=== PATIENT | female | born 1950 | race Caucasian/White ===

== ENCOUNTER → 2017-11-26 | Outpatient (CLI) | payer MEDICARE ==
[~2017-11-26] MED LIST: ACET325T14 PO; ALBU18HF INH; ALPR0.5T6 PO; DAPT500V6 IV; DILT240C55 PO; DILT240C80 PO; ENOX150S4 SQ; FURO20TA3 PO; GUAI600T31 PO; HYDR-3307 PO; LOSA100T6 PO; LOVA40TA2 PO; MONT10TA9 PO; OXYC-302 PO; POLY17PO5 PO; PRED10TA PO; SENN1TAB7 PO; SERT100T5 PO; WARF5TAB PO; ZOLP10TA5 PO
== END | disposition home or self-care (01) ==
LOC: WOUND 13:41
PROVIDERS: ATTEND Family Medicine
DX: T81.89XA Other complications of procedures, not elsewhere classified, initial encounter (principal); I10 Essential (primary) hypertension; J44.1 Chronic obstructive pulmonary disease with (acute) exacerbation; E78.5 Hyperlipidemia, unspecified; F32.9 Major depressive disorder, single episode, unspecified; E66.01 Morbid (severe) obesity due to excess calories; Z87.891 Personal history of nicotine dependence; Z86.718 Personal history of other venous thrombosis and embolism; Z90.710 Acquired absence of both cervix and uterus; Z72.89 Other problems related to lifestyle; Y65.8 Other specified misadventures during surgical and medical care; Y92.89 Other specified places as the place of occurrence of the external cause
CPT/HCPCS: 11043; G0463; WOU0463

== ENCOUNTER 2017-12-17 10:21 | Inpatient (IN) | payer MEDICARE ==
[~2017-12-17] VITALS: Ht 167.6 cm; Wt 89.9 kg
[2017-12-17 14:52] VITALS: BP 118/64
[2017-12-17 15:56] LABS: BASOPHILS # (AUTO) 0.05 x10^3/uL (0-0.1); BASOPHILS % (AUTO) 1 % (0-1); EOSINOPHILS % (AUTO) 0 % (1-7); LYMPHOCYTES # (AUTO) 1.78 x10^3/uL (1-3.4); LYMPHOCYTES % (AUTO) 23 % (22-44); MD NO; MEAN CORPUSCULAR HEMOGLOBIN 29.5 pg (27.0-34.8); MEAN CORPUSCULAR HGB CONC 32.6 g/dL (32.4-35.8); MEAN CORPUSCULAR VOLUME 90.3 fL (80-100); MEAN PLATELET VOLUME 7.4 fL (7.4-10.4); MONOCYTES # (AUTO) 0.56 x10^3/uL (0.2-0.8); MONOCYTES % (AUTO) 7 % (2-9); NEUTROPHILS % (AUTO) 68 % (42-75); PLATELET COUNT 493 x10^3/uL (130-400); RED BLOOD COUNT 3.56 x10^6/uL (3.82-5.3); RED CELL DISTRIBUTION WIDTH 14.7 % (9.6-15.2)
[2017-12-17] MEDS ORDERED: ACETAMINOPHEN 325 MG TABLET PO PRN (16:00)
[2017-12-17 16:02] LABS: ANION GAP 7 mmol/L (5-15); CHLORIDE 100 mmol/L (98-107); CREATININE 0.46 mg/dL (0.55-1.02)
[2017-12-17] MEDS ORDERED: MAGNESIUM HYDROXIDE 8%, 30ML UDC PO PRN (16:30)
[2017-12-17] MEDS ORDERED: DOCUSATE 100 MG CAPSULE PO PRN (16:30)
[2017-12-17] MEDS ORDERED: ZOLPIDEM 5MG TABLET PO PRN (16:30)
[2017-12-17] MEDS ORDERED: ONDANSETRON 2MG/ML, 2ML IV PRN (16:30)
[2017-12-17] MEDS ORDERED: ALUMINUM/MAG/SIMETHICONE 30 ML UDC PO PRN (16:30)
[2017-12-17] MEDS: DAPTOMYCIN 500 MG in SODIUM CHLORIDE 0.9% 100 ML IV SCH (17:07)
[2017-12-17] MEDS: OXYcodone IR 5MG TABLET PO PRN (17:07)
[2017-12-17] MEDS: NS + 20MEQ KCL 1,000 ML IV SCH (17:07)
[2017-12-17 17:23] LABS: INTERNATIONAL NORMALIZED RATIO 1.38 (0.93-1.1); PROTHROMBIN TIME 14.3 Seconds (9.6-11.5)
[2017-12-17 19:31] VITALS: BP 105/58
[2017-12-17] MEDS: OxyconTIN ER 10 MG TAB.ER PO SCH (20:54)
[2017-12-18 01:16] VITALS: BP 108/55
[2017-12-18] MEDS: NS + 20MEQ KCL 1,000 ML IV SCH (04:10)
[2017-12-18 04:34] LABS: BASOPHILS # (AUTO) 0.02 x10^3/uL (0-0.1); BASOPHILS % (AUTO) 0 % (0-1); EOSINOPHILS # (AUTO) 0.01 x10^3/uL (0-0.4); EOSINOPHILS % (AUTO) 0 % (1-7); LYMPHOCYTES # (AUTO) 1.51 x10^3/uL (1-3.4); LYMPHOCYTES % (AUTO) 20 % (22-44); MD NO; MEAN CORPUSCULAR HEMOGLOBIN 29.7 pg (27.0-34.8); MEAN CORPUSCULAR HGB CONC 32.6 g/dL (32.4-35.8); MEAN CORPUSCULAR VOLUME 90.9 fL (80-100); MEAN PLATELET VOLUME 7.4 fL (7.4-10.4); MONOCYTES % (AUTO) 8 % (2-9); NEUTROPHILS # (AUTO) 5.51 x10^3/uL (1.8-6.8); NEUTROPHILS % (AUTO) 72 % (42-75); PLATELET COUNT 499 x10^3/uL (130-400); RED BLOOD COUNT 3.56 x10^6/uL (3.82-5.3); RED CELL DISTRIBUTION WIDTH 13.9 % (9.6-15.2)
[2017-12-18 04:40] LABS: INTERNATIONAL NORMALIZED RATIO 1.3 (0.93-1.1); PROTHROMBIN TIME 13.5 Seconds (9.6-11.5)
[2017-12-18 04:45] LABS: ALANINE AMINOTRANSFERASE 27 U/L (12-78); ALBUMIN 2.7 g/dL (3.4-5.0); ANION GAP 3 mmol/L (5-15); CALCIUM 9.1 mg/dL (8.5-10.1); CHLORIDE 104 mmol/L (98-107)
[2017-12-18 04:48] LABS: ALKALINE PHOSPHATASE 57 U/L (45-117); BILIRUBIN,TOTAL 0.5 mg/dL (0.2-1.0); CREATINE KINASE, TOTAL 67 U/L (26-192); CREATININE 0.48 mg/dL (0.55-1.02); TOTAL PROTEIN 6.6 g/dL (6.4-8.2)
[2017-12-18 07:36] VITALS: BP 131/76
[2017-12-18 08:20] VITALS: BP 129/68
[2017-12-18] MEDS: OxyconTIN ER 10 MG TAB.ER PO SCH ×2 (08:21→21:11)
[2017-12-18] MEDS ORDERED: DILTIAZEM 240 MG CAP.ER.24H PO SCH (09:00)
[2017-12-18] MEDS ORDERED: LOSARTAN 50MG TABLET PO SCH (09:00)
[2017-12-18] MEDS ORDERED: FENTANYL PF 100 MCG/2ML ONE ×2 (09:54→10:38)
[2017-12-18] MEDS ORDERED: MIDAZOLAM 1 MG/ML, 2ML ONE (09:54)
[2017-12-18] MEDS ORDERED: PROPOFOL 10 MG/ML, 20ML ONE (09:56)
[2017-12-18] MEDS ORDERED: OXYcodone 5 MG/5 ML ORAL.SOL UDC ONE (10:38)
[2017-12-18] MEDS ORDERED: ACETAMINOPHEN 650 MG/20.3 ML UDC ONE (10:38)
[2017-12-18] MEDS: FENTANYL PF 100 MCG/2ML IV PRN ×2 (10:45→10:55)
[2017-12-18] MEDS ORDERED: OXYcodone 5 MG/5 ML ORAL.SOL UDC PO PRN (11:00)
[2017-12-18] MEDS ORDERED: hydrALAzine 20 MG/ML, 1ML IV PRN (11:00)
[2017-12-18] MEDS ORDERED: ACETAMINOPHEN 325 MG TABLET PO PRN (11:00)
[2017-12-18] MEDS ORDERED: MEPERIDINE/PF 25MG/0.5ML IVPush PRN (11:00)
[2017-12-18] MEDS ORDERED: PROMETHAZINE 25 MG/ML, 1ML IV PRN (11:00)
[2017-12-18] MEDS ORDERED: LABETALOL 5MG/ML, 20ML IV PRN (11:00)
[2017-12-18] MEDS ORDERED: morphine SULFATE 10 MG/ML, 1ML IV PRN (11:00)
[2017-12-18] MEDS ORDERED: DILTIAZEM 240 MG CAP.ER.24H ONE (12:55)
[2017-12-18] MEDS ORDERED: LOSARTAN 50MG TABLET ONE (12:57)
[2017-12-18 13:06] VITALS: BP 121/59
[2017-12-18] MEDS: LOSARTAN 50MG TABLET PO SCH (13:07)
[2017-12-18] MEDS: LACTOBACILLUS CHEW TABLET PO SCH (13:07)
[2017-12-18] MEDS: DILTIAZEM 240 MG CAP.ER.24H PO SCH (13:08)
[2017-12-18] MEDS: SERTRALINE 100MG TABLET PO SCH (13:08)
[2017-12-18] MEDS: DAPTOMYCIN 500 MG in SODIUM CHLORIDE 0.9% 100 ML IV SCH (17:01)
[2017-12-18 18:59] VITALS: BP 112/63
[2017-12-18 23:50] VITALS: BP 120/66
[2017-12-19 03:45] VITALS: BP 140/76
[2017-12-19 04:55] LABS: BASOPHILS # (AUTO) 0.09 x10^3/uL (0-0.1); BASOPHILS % (AUTO) 1 % (0-1); EOSINOPHILS # (AUTO) 0.03 x10^3/uL (0-0.4); EOSINOPHILS % (AUTO) 0 % (1-7); LYMPHOCYTES % (AUTO) 25 % (22-44); MD NO; MEAN CORPUSCULAR HEMOGLOBIN 29.6 pg (27.0-34.8); MEAN CORPUSCULAR HGB CONC 32.7 g/dL (32.4-35.8); MEAN CORPUSCULAR VOLUME 90.5 fL (80-100); MEAN PLATELET VOLUME 7.6 fL (7.4-10.4); MONOCYTES % (AUTO) 7 % (2-9); NEUTROPHILS # (AUTO) 5.73 x10^3/uL (1.8-6.8); NEUTROPHILS % (AUTO) 67 % (42-75); PLATELET COUNT 485 x10^3/uL (130-400); RED BLOOD COUNT 3.69 x10^6/uL (3.82-5.3); RED CELL DISTRIBUTION WIDTH 14.6 % (9.6-15.2)
[2017-12-19 05:13] LABS: CALCIUM 9.4 mg/dL (8.5-10.1); CHLORIDE 102 mmol/L (98-107); INTERNATIONAL NORMALIZED RATIO 1.22 (0.93-1.1); PROTHROMBIN TIME 12.6 Seconds (9.6-11.5)
[2017-12-19 05:20] LABS: ALANINE AMINOTRANSFERASE 26 U/L (12-78); ALKALINE PHOSPHATASE 62 U/L (45-117); ANION GAP 4 mmol/L (5-15); BILIRUBIN,TOTAL 0.6 mg/dL (0.2-1.0); CREATININE 0.48 mg/dL (0.55-1.02); TOTAL PROTEIN 6.9 g/dL (6.4-8.2)
[2017-12-19 07:50] VITALS: BP 141/76
[2017-12-19] MEDS: ENOXAPARIN 100 MG/ML SQ SCH ×2 (08:00→20:00)
[2017-12-19] MEDS ORDERED: DILTIAZEM 240 MG CAP.ER.24H PO SCH (09:00)
[2017-12-19] MEDS ORDERED: LOSARTAN 50MG TABLET PO SCH (09:00)
[2017-12-19] MEDS: LOSARTAN 50MG TABLET PO SCH (09:31)
[2017-12-19] MEDS: DILTIAZEM 240 MG CAP.ER.24H PO SCH (09:31)
[2017-12-19] MEDS: LACTOBACILLUS CHEW TABLET PO SCH (09:31)
[2017-12-19] MEDS: OxyconTIN ER 10 MG TAB.ER PO SCH ×2 (09:32→20:42)
[2017-12-19] MEDS: SERTRALINE 100MG TABLET PO SCH (09:36)
[2017-12-19 13:27] VITALS: BP 115/54
[2017-12-19] MEDS: DAPTOMYCIN 500 MG in SODIUM CHLORIDE 0.9% 100 ML IV SCH (17:12)
[2017-12-19 19:46] VITALS: BP 116/58
[2017-12-20 03:29] VITALS: BP 111/63
[2017-12-20 05:39] LABS: BASOPHILS # (AUTO) 0.12 x10^3/uL (0-0.1); BASOPHILS % (AUTO) 2 % (0-1); EOSINOPHILS # (AUTO) 0.05 x10^3/uL (0-0.4); EOSINOPHILS % (AUTO) 1 % (1-7); LYMPHOCYTES # (AUTO) 2.04 x10^3/uL (1-3.4); LYMPHOCYTES % (AUTO) 27 % (22-44); MD NO; MEAN CORPUSCULAR HEMOGLOBIN 29.7 pg (27.0-34.8); MEAN CORPUSCULAR HGB CONC 33.1 g/dL (32.4-35.8); MEAN CORPUSCULAR VOLUME 89.8 fL (80-100); MEAN PLATELET VOLUME 7.8 fL (7.4-10.4); MONOCYTES # (AUTO) 0.68 x10^3/uL (0.2-0.8); MONOCYTES % (AUTO) 9 % (2-9); NEUTROPHILS # (AUTO) 4.63 x10^3/uL (1.8-6.8); NEUTROPHILS % (AUTO) 62 % (42-75); PLATELET COUNT 442 x10^3/uL (130-400); RED BLOOD COUNT 3.61 x10^6/uL (3.82-5.3); RED CELL DISTRIBUTION WIDTH 14.1 % (9.6-15.2)
[2017-12-20 05:41] LABS: INTERNATIONAL NORMALIZED RATIO 1.1 (0.93-1.1); PROTHROMBIN TIME 11.4 Seconds (9.6-11.5)
[2017-12-20 05:44] LABS: CHLORIDE 102 mmol/L (98-107)
[2017-12-20 06:04] LABS: ALANINE AMINOTRANSFERASE 29 U/L (12-78); ALBUMIN 2.8 g/dL (3.4-5.0); ALKALINE PHOSPHATASE 59 U/L (45-117); ANION GAP 5 mmol/L (5-15); BILIRUBIN,TOTAL 0.4 mg/dL (0.2-1.0); CALCIUM 8.8 mg/dL (8.5-10.1); CREATINE KINASE, TOTAL 374 U/L (26-192); CREATININE 0.46 mg/dL (0.55-1.02); HCT (SEDRATE) 33.4 % (34.6-47.8); TOTAL PROTEIN 6.5 g/dL (6.4-8.2)
[2017-12-20] MEDS ORDERED: OMNIPAQUE 350 MG/ML, 100ML BOTTLE ONE (06:15)
[2017-12-20 07:35] VITALS: BP 118/67
[2017-12-20] MEDS: OxyconTIN ER 10 MG TAB.ER PO SCH ×2 (08:23→22:02)
[2017-12-20] MEDS: LACTOBACILLUS CHEW TABLET PO SCH (08:23)
[2017-12-20] MEDS: SERTRALINE 100MG TABLET PO SCH (08:23)
[2017-12-20] MEDS: LOSARTAN 50MG TABLET PO SCH (08:24)
[2017-12-20] MEDS: DILTIAZEM 240 MG CAP.ER.24H PO SCH (08:24)
[2017-12-20] MEDS: ENOXAPARIN 100 MG/ML SQ SCH ×2 (08:24→22:02)
[2017-12-20] MEDS: PIPERACILLIN/TAZO/PMX 4.5GM 100 ML IV SCH ×2 (13:53→22:04)
[2017-12-20 14:00] VITALS: BP 129/67
[2017-12-20] MEDS: DAPTOMYCIN 500 MG in SODIUM CHLORIDE 0.9% 100 ML IV SCH (17:26)
[2017-12-20 19:19] VITALS: BP 115/56
[2017-12-21 04:25] VITALS: BP 126/73
[2017-12-21] MEDS: PIPERACILLIN/TAZO/PMX 4.5GM 100 ML IV SCH ×3 (05:09→20:47)
[2017-12-21 05:22] LABS: BASOPHILS # (AUTO) 0.04 x10^3/uL (0-0.1); BASOPHILS % (AUTO) 1 % (0-1); EOSINOPHILS # (AUTO) 0.12 x10^3/uL (0-0.4); EOSINOPHILS % (AUTO) 2 % (1-7); LYMPHOCYTES # (AUTO) 2.26 x10^3/uL (1-3.4); LYMPHOCYTES % (AUTO) 30 % (22-44); MD NO; MEAN CORPUSCULAR HGB CONC 32.5 g/dL (32.4-35.8); MEAN CORPUSCULAR VOLUME 89.3 fL (80-100); MEAN PLATELET VOLUME 7.1 fL (7.4-10.4); MONOCYTES % (AUTO) 8 % (2-9); NEUTROPHILS % (AUTO) 60 % (42-75); PLATELET COUNT 414 x10^3/uL (130-400); RED BLOOD COUNT 3.52 x10^6/uL (3.82-5.3); RED CELL DISTRIBUTION WIDTH 14.5 % (9.6-15.2)
[2017-12-21 05:28] LABS: INTERNATIONAL NORMALIZED RATIO 1.11 (0.93-1.1); PROTHROMBIN TIME 11.5 Seconds (9.6-11.5)
[2017-12-21 05:38] LABS: ANION GAP 4 mmol/L (5-15); CALCIUM 9.1 mg/dL (8.5-10.1); CHLORIDE 104 mmol/L (98-107)
[2017-12-21 05:40] LABS: CREATININE 0.63 mg/dL (0.55-1.02)
[2017-12-21] MEDS ORDERED: DEXAMETHASONE 4 MG/ML, 1ML ONE (07:04)
[2017-12-21 07:45] VITALS: BP 128/69
[2017-12-21] MEDS: ENOXAPARIN 100 MG/ML SQ SCH ×2 (08:00→20:47)
[2017-12-21] MEDS: DILTIAZEM 240 MG CAP.ER.24H PO SCH (08:05)
[2017-12-21] MEDS: SERTRALINE 100MG TABLET PO SCH (08:05)
[2017-12-21] MEDS: LOSARTAN 50MG TABLET PO SCH (08:06)
[2017-12-21] MEDS: OxyconTIN ER 10 MG TAB.ER PO SCH ×2 (08:06→20:47)
[2017-12-21] MEDS: LACTOBACILLUS CHEW TABLET PO SCH (08:06)
[2017-12-21 14:00] VITALS: BP 128/59
[2017-12-21] MEDS: DAPTOMYCIN 500 MG in SODIUM CHLORIDE 0.9% 100 ML IV SCH (17:20)
[2017-12-21 20:18] VITALS: BP 105/61
[2017-12-22 02:19] VITALS: BP 110/59
[2017-12-22] MEDS: PIPERACILLIN/TAZO/PMX 4.5GM 100 ML IV SCH ×3 (05:21→22:07)
[2017-12-22] MEDS ORDERED: CATHFLO-ALTEPLASE 2 MG/2 ML CATHFLUSH ONE (05:30)
[2017-12-22 06:13] LABS: INTERNATIONAL NORMALIZED RATIO 1.01 (0.93-1.1); PROTHROMBIN TIME 10.5 Seconds (9.6-11.5)
[2017-12-22] MEDS ORDERED: MIDAZOLAM 1 MG/ML, 2ML ONE (06:33)
[2017-12-22] MEDS ORDERED: FENTANYL PF 100 MCG/2ML ONE ×2 (06:33→07:58)
[2017-12-22] MEDS ORDERED: PROMETHAZINE 25 MG SUPP PR PRN (07:30)
[2017-12-22] MEDS ORDERED: MEPERIDINE/PF 25MG/0.5ML IVPush PRN (07:30)
[2017-12-22] MEDS ORDERED: ONDANSETRON 0.8 MG/ML ORAL SOL PO PRN (07:30)
[2017-12-22] MEDS ORDERED: hydrALAzine 20 MG/ML, 1ML IV PRN (07:30)
[2017-12-22] MEDS ORDERED: PROMETHAZINE 12.5 MG SUPP PR PRN (07:30)
[2017-12-22] MEDS ORDERED: OXYcodone 5 MG/5 ML ORAL.SOL UDC PO PRN (07:30)
[2017-12-22] MEDS ORDERED: PROMETHAZINE 25 MG/ML, 1ML IV PRN (07:30)
[2017-12-22] MEDS ORDERED: LABETALOL 5MG/ML, 20ML IV PRN (07:30)
[2017-12-22] MEDS ORDERED: LORazepam 2 MG/ML, 1ML IVPush PRN (07:30)
[2017-12-22] MEDS ORDERED: ALBUTEROL SULFATE 2.5 MG/3 ML NPPB PRN (07:30)
[2017-12-22] MEDS ORDERED: HYDROmorphone 1 MG/ML, 1ML IV PRN (07:30)
[2017-12-22] MEDS ORDERED: ACETAMINOPHEN 325 MG TABLET PO PRN (07:30)
[2017-12-22] MEDS ORDERED: ACETAMINOPHEN 650 MG/20.3 ML UDC ONE (07:58)
[2017-12-22] MEDS ORDERED: ACETAMINOPHEN 325 MG TABLET ONE ×2 (07:58→08:05)
[2017-12-22] MEDS ORDERED: OXYcodone 5 MG/5 ML ORAL.SOL UDC ONE (07:58)
[2017-12-22] MEDS: FENTANYL PF 100 MCG/2ML IV PRN ×2 (08:00→08:20)
[2017-12-22 08:55] VITALS: BP 104/48
[2017-12-22] MEDS: LOSARTAN 50MG TABLET PO SCH (09:00)
[2017-12-22] MEDS: LACTOBACILLUS CHEW TABLET PO SCH (11:46)
[2017-12-22] MEDS: SERTRALINE 100MG TABLET PO SCH (11:46)
[2017-12-22] MEDS: OxyconTIN ER 10 MG TAB.ER PO SCH ×2 (11:47→22:08)
[2017-12-22] MEDS: ENOXAPARIN 80 MG/0.8 ML SQ SCH ×2 (11:47→20:33)
[2017-12-22 13:15] VITALS: BP 117/44
[2017-12-22] MEDS: DILTIAZEM 240 MG CAP.ER.24H PO SCH (13:57)
[2017-12-22] MEDS: OXYcodone IR 5MG TABLET PO PRN ×5 (13:58→22:07)
[2017-12-22] MEDS: DAPTOMYCIN 500 MG in SODIUM CHLORIDE 0.9% 100 ML IV SCH (18:19)
[2017-12-22 19:28] VITALS: BP 113/61
[2017-12-22 23:45] VITALS: BP 107/64
[2017-12-23] MEDS: PIPERACILLIN/TAZO/PMX 4.5GM 100 ML IV SCH (05:02)
[2017-12-23 07:32] VITALS: BP 114/59
[2017-12-23 08:16] LABS: INTERNATIONAL NORMALIZED RATIO 1.03 (0.93-1.1); PROTHROMBIN TIME 10.7 Seconds (9.6-11.5)
[2017-12-23] MEDS: LOSARTAN 50MG TABLET PO SCH (09:09)
[2017-12-23] MEDS: OXYcodone IR 5MG TABLET PO PRN (09:09)
[2017-12-23] MEDS: LACTOBACILLUS CHEW TABLET PO SCH (09:09)
[2017-12-23] MEDS: DILTIAZEM 240 MG CAP.ER.24H PO SCH (09:09)
[2017-12-23] MEDS: OxyconTIN ER 10 MG TAB.ER PO SCH ×2 (09:09→20:59)
[2017-12-23] MEDS: SERTRALINE 100MG TABLET PO SCH (09:09)
[2017-12-23] MEDS: ENOXAPARIN 80 MG/0.8 ML SQ SCH ×2 (09:10→20:00)
[2017-12-23] MEDS: CEFTRIAXONE PMX 2GM/50ML 50 ML IV SCH (13:21)
[2017-12-23 13:23] VITALS: BP 113/59
[2017-12-23] MEDS: WARFARIN 10 MG TABLET PO-COUM SCH (17:55)
[2017-12-23] MEDS: DAPTOMYCIN 500 MG in SODIUM CHLORIDE 0.9% 100 ML IV SCH (17:56)
[2017-12-23 18:38] VITALS: BP 103/52
[2017-12-23] MEDS ORDERED: LIDODERM 5% PATCH TD PRN (21:30)
[2017-12-24 01:30] VITALS: BP 108/59
[2017-12-24 06:08] LABS: INTERNATIONAL NORMALIZED RATIO 1.03 (0.93-1.1); PROTHROMBIN TIME 10.7 Seconds (9.6-11.5)
[2017-12-24] MEDS: LACTOBACILLUS CHEW TABLET PO SCH (09:13)
[2017-12-24] MEDS: LOSARTAN 50MG TABLET PO SCH (09:14)
[2017-12-24] MEDS: ENOXAPARIN 100 MG/ML SQ SCH ×2 (09:14→21:28)
[2017-12-24] MEDS: OxyconTIN ER 10 MG TAB.ER PO SCH ×2 (09:14→21:28)
[2017-12-24] MEDS: SERTRALINE 100MG TABLET PO SCH (09:14)
[2017-12-24] MEDS: DILTIAZEM 240 MG CAP.ER.24H PO SCH (09:14)
[2017-12-24 09:17] VITALS: BP 104/61
[2017-12-24] MEDS: MORPHINE SULFATE 4 MG/ML, 1ML IV PRN (11:52)
[2017-12-24] MEDS: CEFTRIAXONE PMX 2GM/50ML 50 ML IV SCH (13:23)
[2017-12-24 14:59] VITALS: BP 106/47
[2017-12-24] MEDS: WARFARIN 10 MG TABLET PO-COUM SCH (17:24)
[2017-12-24] MEDS: DAPTOMYCIN 500 MG in SODIUM CHLORIDE 0.9% 100 ML IV SCH (17:24)
[2017-12-24 19:55] VITALS: BP 110/62
[2017-12-25 02:57] VITALS: BP 102/56
[2017-12-25 06:26] VITALS: BP 109/56
[2017-12-25 06:44] LABS: INTERNATIONAL NORMALIZED RATIO 1.05 (0.93-1.1); PROTHROMBIN TIME 10.9 Seconds (9.6-11.5)
[2017-12-25] MEDS: OxyconTIN ER 10 MG TAB.ER PO SCH ×2 (09:00→20:42)
[2017-12-25] MEDS: SERTRALINE 100MG TABLET PO SCH (09:00)
[2017-12-25] MEDS: LACTOBACILLUS CHEW TABLET PO SCH (09:00)
[2017-12-25] MEDS: LOSARTAN 50MG TABLET PO SCH (09:01)
[2017-12-25] MEDS: ENOXAPARIN 100 MG/ML SQ SCH ×2 (09:02→20:42)
[2017-12-25] MEDS: DILTIAZEM 240 MG CAP.ER.24H PO SCH (09:03)
[2017-12-25 12:57] VITALS: BP 111/50
[2017-12-25] MEDS: OXYcodone IR 5MG TABLET PO PRN (13:48)
[2017-12-25] MEDS: CEFTRIAXONE PMX 2GM/50ML 50 ML IV SCH (13:48)
[2017-12-25] MEDS ORDERED: SODIUM CHLORIDE 0.9% 1,000 ML IV SCH (17:30)
[2017-12-25] MEDS: DAPTOMYCIN 500 MG in SODIUM CHLORIDE 0.9% 100 ML IV SCH (17:49)
[2017-12-25] MEDS: WARFARIN 10 MG TABLET PO-COUM SCH (17:50)
[2017-12-25 18:38] VITALS: BP 114/58
[2017-12-26 01:31] VITALS: BP 125/65
[2017-12-26 06:42] LABS: INTERNATIONAL NORMALIZED RATIO 1.06 (0.93-1.1)
[2017-12-26 06:44] LABS: CREATININE 0.52 mg/dL (0.55-1.02)
[2017-12-26 08:08] VITALS: BP 123/69
[2017-12-26] MEDS: SERTRALINE 100MG TABLET PO SCH (09:16)
[2017-12-26] MEDS: OxyconTIN ER 10 MG TAB.ER PO SCH ×2 (09:16→21:42)
[2017-12-26] MEDS: ENOXAPARIN 100 MG/ML SQ SCH ×2 (09:16→21:42)
[2017-12-26] MEDS: DILTIAZEM 240 MG CAP.ER.24H PO SCH (09:17)
[2017-12-26] MEDS: LOSARTAN 50MG TABLET PO SCH (09:17)
[2017-12-26] MEDS: LACTOBACILLUS CHEW TABLET PO SCH (09:17)
[2017-12-26] MEDS: CEFTRIAXONE PMX 2GM/50ML 50 ML IV SCH (13:30)
[2017-12-26 13:34] VITALS: BP 112/62
[2017-12-26] MEDS: WARFARIN 10 MG TABLET PO-COUM SCH (17:22)
[2017-12-26] MEDS: DAPTOMYCIN 500 MG in SODIUM CHLORIDE 0.9% 100 ML IV SCH (17:22)
[2017-12-26 19:03] VITALS: BP 109/61
[2017-12-26] MEDS: MORPHINE SULFATE 4 MG/ML, 1ML IV PRN (21:57)
[2017-12-27 03:34] VITALS: BP 115/63
[2017-12-27] MEDS: OXYcodone IR 5MG TABLET PO PRN ×2 (06:03→14:45)
[2017-12-27 06:15] LABS: BASOPHILS # (AUTO) 0.05 x10^3/uL (0-0.1); BASOPHILS % (AUTO) 1 % (0-1); EOSINOPHILS # (AUTO) 0.27 x10^3/uL (0-0.4); EOSINOPHILS % (AUTO) 4 % (1-7); LYMPHOCYTES # (AUTO) 2.34 x10^3/uL (1-3.4); LYMPHOCYTES % (AUTO) 33 % (22-44); MD NO; MEAN CORPUSCULAR HEMOGLOBIN 28.9 pg (27.0-34.8); MEAN CORPUSCULAR HGB CONC 32.7 g/dL (32.4-35.8); MEAN CORPUSCULAR VOLUME 88.5 fL (80-100); MEAN PLATELET VOLUME 7.8 fL (7.4-10.4); MONOCYTES # (AUTO) 0.63 x10^3/uL (0.2-0.8); MONOCYTES % (AUTO) 9 % (2-9); NEUTROPHILS # (AUTO) 3.75 x10^3/uL (1.8-6.8); NEUTROPHILS % (AUTO) 53 % (42-75); PLATELET COUNT 352 x10^3/uL (130-400); RED BLOOD COUNT 3.62 x10^6/uL (3.82-5.3); RED CELL DISTRIBUTION WIDTH 14.8 % (9.6-15.2)
[2017-12-27 06:28] LABS: ALANINE AMINOTRANSFERASE 41 U/L (12-78); ANION GAP 4 mmol/L (5-15); C-REACTIVE PROTEIN, QUANT 0.49 mg/dL (0.02-0.49); CALCIUM 8.8 mg/dL (8.5-10.1); CHLORIDE 102 mmol/L (98-107); CREATININE 0.51 mg/dL (0.55-1.02)
[2017-12-27 06:30] LABS: ALKALINE PHOSPHATASE 71 U/L (45-117); BILIRUBIN,TOTAL 0.2 mg/dL (0.2-1.0); CREATINE KINASE, TOTAL 79 U/L (26-192); TOTAL PROTEIN 6.9 g/dL (6.4-8.2)
[2017-12-27 06:59] LABS: INTERNATIONAL NORMALIZED RATIO 1.11 (0.93-1.1); PROTHROMBIN TIME 11.5 Seconds (9.6-11.5)
[2017-12-27 07:49] VITALS: BP 108/57
[2017-12-27] MEDS: OxyconTIN ER 10 MG TAB.ER PO SCH (09:11)
[2017-12-27] MEDS: LACTOBACILLUS CHEW TABLET PO SCH (09:11)
[2017-12-27] MEDS: SERTRALINE 100MG TABLET PO SCH (09:11)
[2017-12-27] MEDS: ENOXAPARIN 100 MG/ML SQ SCH (09:11)
[2017-12-27] MEDS: DILTIAZEM 240 MG CAP.ER.24H PO SCH (09:11)
[2017-12-27] MEDS: LOSARTAN 50MG TABLET PO SCH (09:11)
[2017-12-27 13:00] VITALS: BP 111/61
[2017-12-27] MEDS: CEFTRIAXONE PMX 2GM/50ML 50 ML IV SCH (13:14)
[2017-12-27] MEDS: DAPTOMYCIN 500 MG in SODIUM CHLORIDE 0.9% 100 ML IV SCH (15:23)
[2017-12-27] MEDS ORDERED: CEFT2FRO2 IV (15:52)
[2017-12-27] MEDS ORDERED: LACT1CAP24 PO (15:53)
[2017-12-27] MEDS ORDERED: OXYC10TA47 PO (15:53)
[2017-12-27] MEDS ORDERED: DOCU-131 PO (15:54)
[2017-12-27] MEDS ORDERED: MAGN400O7 PO (15:54)
[2017-12-27] MEDS ORDERED: OXYC5CAP2 PO (15:55)
[2017-12-27] MEDS ORDERED: MORP1SYR2 IV (15:55)
[2017-12-27] MEDS ORDERED: ONDA2VIA3 IV (15:57)
[2017-12-27] MEDS ORDERED: LIDO700A42 TP (15:58)
[2017-12-27] MEDS ORDERED: ENOX100S5 SQ (15:59)
== END 2017-12-27 16:48 | DRG 856 ==
LOC: 4NOR 14:39
PROVIDERS: ADMIT Internal Medicine; ATTEND Internal Medicine
PROC: 0QBJ0ZZ Excision of Right Fibula, Open Approach (ICD-10-PCS; 2017-12-18)
PROC: 0YP90JZ Removal of Synthetic Substitute from Right Lower Extremity, Open Approach (ICD-10-PCS; principal; 2017-12-22 07:00)
DX: T81.4XXA Infection following a procedure, initial encounter (principal); J96.00 Acute respiratory failure, unspecified whether with hypoxia or hypercapnia; J18.1 Lobar pneumonia, unspecified organism; D68.59 Other primary thrombophilia; T81.30XA Disruption of wound, unspecified, initial encounter; D62 Acute posthemorrhagic anemia; F11.20 Opioid dependence, uncomplicated; F13.20 Sedative, hypnotic or anxiolytic dependence, uncomplicated; J44.0 Chronic obstructive pulmonary disease with (acute) lower respiratory infection; J98.11 Atelectasis; L03.115 Cellulitis of right lower limb; S82.891A Other fracture of right lower leg, initial encounter for closed fracture; D63.8 Anemia in other chronic diseases classified elsewhere; E66.9 Obesity, unspecified; E78.5 Hyperlipidemia, unspecified; F32.9 Major depressive disorder, single episode, unspecified; F41.9 Anxiety disorder, unspecified; G89.29 Other chronic pain; I10 Essential (primary) hypertension; M19.90 Unspecified osteoarthritis, unspecified site; Z79.01 Long term (current) use of anticoagulants; Z79.899 Other long term (current) drug therapy; Z82.49 Family history of ischemic heart disease and other diseases of the circulatory system; Z87.891 Personal history of nicotine dependence; Z86.711 Personal history of pulmonary embolism; Z90.710 Acquired absence of both cervix and uterus; Z91.81 History of falling; Z96.652 Presence of left artificial knee joint; Z98.1 Arthrodesis status; B95.62 Methicillin resistant Staphylococcus aureus infection as the cause of diseases classified elsewhere; Y83.8 Other surgical procedures as the cause of abnormal reaction of the patient, or of later complication, without mention of misadventure at the time of the procedure; Y92.89 Other specified places as the place of occurrence of the external cause
CPT/HCPCS: 36415; 71045; 71275; 80048; 80053; 82550; 82565; 82962; 85025; 85610; 85651; 85730; 86140; 87070; 87075; 87077; 87176; 87186; 87205; J0696; J0878; J1100; J1650; J2250; J2543; J2704; J2997; J3010; J3480; Q9967; J7030

== ENCOUNTER 2019-07-19 13:30 | Inpatient (IN) | payer MEDICARE ==
[~2019-07-19] VITALS: Ht 165.1 cm; Wt 104.1 kg
[~2019-07-19 13:30] MED LIST changes: +CEFT2FRO2 IV; +DOCU-131 PO; +ENOX100S5 SQ; -HYDR-3307 PO; +HYDR-36 PO; +LACT1CAP24 PO; +LIDO700A42 TP; +LOSA100T14 PO; -LOSA100T6 PO; +MAGN400O7 PO; +MORP1SYR2 IV; +ONDA2VIA3 IV; +OXYC10TA47 PO; +OXYC5CAP2 PO; +SENN-177 PO; -SENN1TAB7 PO; +SERT100T32 PO; -SERT100T5 PO
--- NOTE | 2019-07-19 13:44 | NUR ---
PT BIB [facility] FOR C/O HAVING HELP FROM YESTERDAY FROM TOILET TO BED AND PT HEARD A POP IN HER R ARM AND HAD PAIN. OBVIOUS DEFORMITY TO R ARM. HX COPD PER EMS NOTED TO BE IN THE LOW 80'S ON HER HOME O2. BASELNE 02 IS 3L NC. CURRENTLY ON 6L NC. PT RESTING ON GURNEY. NADN. VSS. EKG COMPLETED. ERP DR. SIDDIQI AT BEDSIDE.
[2019-07-19] MEDS ORDERED: ONDANSETRON 2MG/ML, 2ML IVPush ONE (14:00)
[2019-07-19] MEDS ORDERED: ALBUTEROL SULFATE 2.5 MG/3 ML NPPB ONE (14:00)
[2019-07-19] MEDS ORDERED: ALBUTEROL/IPRATROPIUM 2.5MG/0.5MG, 3 ML NPPB ONE (14:00)
[2019-07-19] MEDS ORDERED: SODIUM CHLORIDE FLUSH 10ML SYR IVF ONE (14:00)
[2019-07-19] MEDS ORDERED: ONDANSETRON 2MG/ML, 2ML ONE (14:07)
[2019-07-19] MEDS ORDERED: MORPHINE SULFATE 4 MG/ML, 1ML ONE ×2 (14:07→19:15)
[2019-07-19] MEDS ORDERED: ALBUTEROL/IPRATROPIUM 2.5MG/0.5MG, 3 ML ONE ×2 (14:08→20:54)
[2019-07-19 14:20] LABS: MEAN CORPUSCULAR HEMOGLOBIN 28.5 pg (27.0-34.8); MEAN CORPUSCULAR HGB CONC 31.9 g/dL (32.4-35.8); MEAN CORPUSCULAR VOLUME 89.4 fL (80-100); MEAN PLATELET VOLUME 7.9 fL (7.4-10.4); PLATELET COUNT 246 x10^3/uL (130-400); RED BLOOD COUNT 2.63 x10^6/uL (3.82-5.3); RED CELL DISTRIBUTION WIDTH 14.4 % (9.6-15.2)
[2019-07-19 14:29] LABS: ALANINE AMINOTRANSFERASE 17 U/L (12-78); ALBUMIN 2.9 g/dL (3.4-5.0); ANION GAP 4 mmol/L (5-15); CALCIUM 9.2 mg/dL (8.5-10.1); CHLORIDE 93 mmol/L (98-107); CREATININE 0.75 mg/dL (0.55-1.02)
[2019-07-19] MEDS ORDERED: MORPHINE SULFATE 4 MG/ML, 1ML IVPush PRN (14:30)
[2019-07-19 14:32] LABS: ALKALINE PHOSPHATASE 64 U/L (45-117); BILIRUBIN,TOTAL 0.7 mg/dL (0.2-1.0); TOTAL PROTEIN 6.7 g/dL (6.4-8.2)
[2019-07-19] MEDS ORDERED: CEFTRIAXONE PMX 1GM/50ML 50 ML IV ONE (15:30)
[2019-07-19] MEDS ORDERED: SODIUM CHLORIDE 0.9%, 500ML IVBOLUS ONE (15:30)
[2019-07-19] MEDS ORDERED: AZITHROMYCIN 500 MG in SODIUM CHLORIDE 0.9% 250 ML IV ONE (15:30)
[2019-07-19 15:39] LABS: BASOPHILS # (AUTO) 0.02 x10^3/uL (0-0.1); BASOPHILS % (AUTO) 0 % (0-1); EOSINOPHILS # (AUTO) 0.01 x10^3/uL (0-0.4); EOSINOPHILS % (AUTO) 0 % (1-7); LYMPHOCYTES # (AUTO) 1.42 x10^3/uL (1-3.4); LYMPHOCYTES % (AUTO) 8 % (22-44); MD SCAN; MONOCYTES # (AUTO) 0.88 x10^3/uL (0.2-0.8); MONOCYTES % (AUTO) 5 % (2-9); NEUTROPHILS # (AUTO) 15.19 x10^3/uL (1.8-6.8); NEUTROPHILS % (AUTO) 87 % (42-75)
--- NOTE | 2019-07-19 15:46 | NUR ---
PT RESTING ON GURNEY. NADN. DOMINGUEZ.
--- NOTE | 2019-07-19 15:55 | NUR ---
CHERYL RN. RECEIVED PHONE CALL FROM ASAEL IN LAB. STATED "UNABLE TO PROCESS COAGULATION TESTING/STUDIES DUE TO INTERFERRING SUBSTANCES, BLOOD NEEDS TO BE RE-DRAWN AND POSSIBLY SENT TO [facility]." DISCUSSED WITH DR. WALL, AWARE. PRIMARY RN NOTIFIED, VERBALIZED UNDERSTANDING.
[2019-07-19] MEDS ORDERED: CEFTRIAXONE PMX 1GM/50ML 50 ML ONE (16:02)
[2019-07-19] MEDS ORDERED: NEOSPORIN OINT. PKT 1 PACKET ONE (16:07)
--- NOTE | 2019-07-19 16:26 | NUR ---
PT RESTING ON GURNEY. NADN. DOMINGUEZ.
--- NOTE | 2019-07-19 17:28 | NUR ---
PT RESTING ON GURNEY. NADN. DOMINGUEZ.
[2019-07-19] MEDS ORDERED: ONDANSETRON 2MG/ML, 2ML IVPush PRN (17:30)
[2019-07-19] MEDS ORDERED: hydrALAzine 20 MG/ML, 1ML IVPush PRN (17:30)
[2019-07-19] MEDS ORDERED: ONDANSETRON ODT 4 MG PO PRN (17:30)
[2019-07-19] MEDS ORDERED: ACETAMINOPHEN 325 MG TABLET PO PRN ×2 (17:30→18:00)
[2019-07-19] MEDS ORDERED: morphine SULFATE 10 MG/ML, 1ML IVPush PRN (17:30)
[2019-07-19] MEDS ORDERED: KETOROLAC 30 MG/1 ML IV PRN (17:30)
[2019-07-19] MEDS ORDERED: DOCUSATE 100 MG CAPSULE PO PRN (18:00)
[2019-07-19] MEDS ORDERED: NS + 20MEQ KCL 1,000 ML IV ONE (18:59)
[2019-07-19] MEDS ORDERED: ENOXAPARIN 40 MG/0.4 ML SQ SCH (19:00)
[2019-07-19] MEDS: NS + 20MEQ KCL 1,000 ML IV SCH (19:13)
--- NOTE | 2019-07-19 19:23 | NUR ---
PT RESTING ON GURNEY WITH C/O PAIN IN HER RIGHT WRIST. PT MEDICATED FOR PAIN PER [facility] AND IV POTASSIUM IN NS STARTED.
--- NOTE | 2019-07-19 19:30 | NUR ---
pt ton phone [phone]
--- NOTE | 2019-07-19 19:59 | NUR ---
REPORT TO KATERYNA RN
[2019-07-19 20:30] VITALS: BP 117/73
[2019-07-19 20:51] VITALS: BP 117/73
[2019-07-19] MEDS ORDERED: LOVASTATIN 40 MG TABLET PO SCH (21:00)
[2019-07-19] MEDS ORDERED: WARFARIN 5 MG TABLET PO-COUM SCH (21:00)
[2019-07-19] MEDS: methylPREDNISolone SOD SUCC 125 MG/2 ML IV SCH (21:12)
[2019-07-19] MEDS: OXYcodone IR 5MG TABLET PO PRN (21:12)
[2019-07-19] MEDS: ATORVASTATIN 10 MG TABLET PO SCH (21:12)
[2019-07-19] MEDS ORDERED: PHYTONADIONE 5 MG TABLET PO ONE (23:00)
[2019-07-20] VITALS (7 sets, daily range): BP systolic 95–115; BP diastolic 62–71
[2019-07-20] MEDS: methylPREDNISolone SOD SUCC 125 MG/2 ML IV SCH ×3 (04:45→20:37)
[2019-07-20] MEDS: NS + 20MEQ KCL 1,000 ML IV SCH ×2 (04:46→22:45)
[2019-07-20 05:01] LABS: ANION GAP 5 mmol/L (5-15); CALCIUM 8.7 mg/dL (8.5-10.1); CHLORIDE 96 mmol/L (98-107); CREATININE 0.82 mg/dL (0.55-1.02)
[2019-07-20 05:12] LABS: MEAN CORPUSCULAR HEMOGLOBIN 28.5 pg (27.0-34.8); MEAN CORPUSCULAR HGB CONC 31.9 g/dL (32.4-35.8); MEAN CORPUSCULAR VOLUME 89.4 fL (80-100); MEAN PLATELET VOLUME 8.2 fL (7.4-10.4); PLATELET COUNT 205 x10^3/uL (130-400); RED BLOOD COUNT 2.11 x10^6/uL (3.82-5.3); RED CELL DISTRIBUTION WIDTH 14.3 % (9.6-15.2)
[2019-07-20 05:40] LABS: INTERNATIONAL NORMALIZED RATIO > 12.00 (0.93-1.1); PROTHROMBIN TIME 125.1 Seconds (9.6-11.5)
[2019-07-20 05:42] LABS: BASOPHILS # (AUTO) 0.01 x10^3/uL (0-0.1); BASOPHILS % (AUTO) 0 % (0-1); EOSINOPHILS % (AUTO) 0 % (1-7); LYMPHOCYTES % (AUTO) 5 % (22-44); MD SCAN; MONOCYTES # (AUTO) 0.25 x10^3/uL (0.2-0.8); MONOCYTES % (AUTO) 2 % (2-9); NEUTROPHILS # (AUTO) 10.39 x10^3/uL (1.8-6.8); NEUTROPHILS % (AUTO) 92 % (42-75)
[2019-07-20] MEDS ORDERED: PHYTONADIONE 5 MG TABLET PO ONE (06:00)
[2019-07-20] MEDS: ALBUTEROL SULFATE 2.5 MG/3 ML NPPB SCH ×4 (07:00→18:40)
[2019-07-20] MEDS ORDERED: HOLD COUMADIN MC PRN (08:00)
[2019-07-20] MEDS: SERTRALINE 100MG TABLET PO SCH (08:57)
[2019-07-20] MEDS: DILTIAZEM 240 MG CAP.ER.24H PO SCH (09:00)
[2019-07-20] MEDS: CEFTRIAXONE PMX 1GM/50ML 50 ML IV SCH (12:00)
[2019-07-20] MEDS: AZITHROMYCIN 500 MG in SODIUM CHLORIDE 0.9% 250 ML IV SCH (12:00)
[2019-07-20] MEDS: OXYcodone IR 5MG TABLET PO PRN ×2 (12:03→22:45)
[2019-07-20 15:58] LABS: MICROSCOPIC INDICATED
[2019-07-20 15:59] LABS: CULTURE INDICATED? YES
[2019-07-20] MEDS: ATORVASTATIN 10 MG TABLET PO SCH (20:37)
[2019-07-21 01:14] VITALS: BP 104/68
[2019-07-21] MEDS: methylPREDNISolone SOD SUCC 125 MG/2 ML IV SCH ×3 (04:10→20:13)
[2019-07-21] MEDS: ALBUTEROL SULFATE 2.5 MG/3 ML NPPB SCH ×2 (07:00→10:23)
[2019-07-21] MEDS: NS + 20MEQ KCL 1,000 ML IV SCH ×2 (07:30→23:07)
[2019-07-21 07:54] LABS: INTERNATIONAL NORMALIZED RATIO 1.21 (0.93-1.1)
[2019-07-21 07:55] LABS: PROTHROMBIN TIME 12.6 Seconds (9.6-11.5)
[2019-07-21] MEDS: OXYcodone IR 5MG TABLET PO PRN ×3 (08:20→20:13)
[2019-07-21] MEDS: SERTRALINE 100MG TABLET PO SCH (08:20)
[2019-07-21] MEDS: DILTIAZEM 240 MG CAP.ER.24H PO SCH (08:20)
[2019-07-21 08:21] VITALS: BP 105/65
[2019-07-21] MEDS: CEFTRIAXONE PMX 1GM/50ML 50 ML IV SCH (12:07)
[2019-07-21 13:16] LABS: ALBUMIN 2.6 g/dL (3.4-5.0); ANION GAP 5 mmol/L (5-15); CHLORIDE 100 mmol/L (98-107); CREATININE 0.72 mg/dL (0.55-1.02)
[2019-07-21] MEDS: AZITHROMYCIN 500 MG in SODIUM CHLORIDE 0.9% 250 ML IV SCH (13:17)
[2019-07-21 13:23] LABS: MEAN CORPUSCULAR HEMOGLOBIN 28.7 pg (27.0-34.8); MEAN CORPUSCULAR HGB CONC 31.9 g/dL (32.4-35.8); MEAN PLATELET VOLUME 8.6 fL (7.4-10.4); PLATELET COUNT 348 x10^3/uL (130-400); RED BLOOD COUNT 2.44 x10^6/uL (3.82-5.3); RED CELL DISTRIBUTION WIDTH 14.3 % (9.6-15.2)
[2019-07-21 13:29] LABS: BASOPHILS # (AUTO) 0.01 x10^3/uL (0-0.1); BASOPHILS % (AUTO) 0 % (0-1); EOSINOPHILS % (AUTO) 0 % (1-7); LYMPHOCYTES # (AUTO) 0.45 x10^3/uL (1-3.4); LYMPHOCYTES % (AUTO) 3 % (22-44); MD SCAN; MONOCYTES # (AUTO) 0.34 x10^3/uL (0.2-0.8); MONOCYTES % (AUTO) 3 % (2-9); NEUTROPHILS # (AUTO) 12.36 x10^3/uL (1.8-6.8); NEUTROPHILS % (AUTO) 94 % (42-75)
[2019-07-21 14:05] VITALS: BP 102/56
[2019-07-21] MEDS ORDERED: CHOLECALCIFEROL 400 UNITS/ML ORAL SOL PO SCH (16:30)
[2019-07-21] MEDS ORDERED: POTASSIUM PHOSPHATE 44 MEQ in SODIUM CHLORIDE 0.9% 500 ML IV ONE (16:30)
[2019-07-21] MEDS: ASCORBIC ACID 500 MG TABLET PO SCH (17:37)
[2019-07-21] MEDS ORDERED: WARFARIN 5 MG TABLET PO-COUM ONE (18:00)
[2019-07-21 19:21] VITALS: BP 122/78
[2019-07-21] MEDS: ATORVASTATIN 10 MG TABLET PO SCH (20:13)
[2019-07-22 00:24] VITALS: BP 113/70
[2019-07-22] MEDS: methylPREDNISolone SOD SUCC 125 MG/2 ML IV SCH ×3 (04:35→23:09)
[2019-07-22] MEDS: OXYcodone IR 5MG TABLET PO PRN ×3 (04:58→16:07)
[2019-07-22 07:03] VITALS: BP 124/78
[2019-07-22] MEDS: DILTIAZEM 240 MG CAP.ER.24H PO SCH (08:06)
[2019-07-22] MEDS: SERTRALINE 100MG TABLET PO SCH (08:06)
[2019-07-22] MEDS: ASCORBIC ACID 500 MG TABLET PO SCH ×2 (08:07→16:07)
[2019-07-22] MEDS: MULTIVITS,STRESS FORMULA 1 TABLET PO SCH (08:07)
[2019-07-22 09:20] LABS: INTERNATIONAL NORMALIZED RATIO 1.17 (0.93-1.1); PROTHROMBIN TIME 12.2 Seconds (9.6-11.5)
[2019-07-22 09:23] LABS: ANION GAP 7 mmol/L (5-15); CALCIUM 9.3 mg/dL (8.5-10.1); CHLORIDE 104 mmol/L (98-107); CREATININE 0.87 mg/dL (0.55-1.02)
[2019-07-22] MEDS: NS + 20MEQ KCL 1,000 ML IV SCH ×2 (09:52→23:09)
[2019-07-22 10:13] LABS: MEAN CORPUSCULAR HEMOGLOBIN 28.1 pg (27.0-34.8); MEAN CORPUSCULAR HGB CONC 31.4 g/dL (32.4-35.8); MEAN CORPUSCULAR VOLUME 89.5 fL (80-100); MEAN PLATELET VOLUME 7.9 fL (7.4-10.4); PLATELET COUNT 725 x10^3/uL (130-400); RED BLOOD COUNT 2.87 x10^6/uL (3.82-5.3); RED CELL DISTRIBUTION WIDTH 14.8 % (9.6-15.2)
[2019-07-22 10:14] LABS: MD YES
[2019-07-22 10:16] LABS: ANISOCYTOSIS 1+; BANDS%(MANUAL) 5 % (0-7); LYMPH#(MANUAL) 2.87 x10^3/uL (1-3.4); LYMPHS% (MANUAL) 12 % (22-44); METAMYELOCYTES# (MANUAL) 0.72 x10^3/uL (0-0); METAMYELOCYTES% (MANUAL) 3 % (0-1); MONOS#(MANUAL) 0.48 x10^3/uL (0.3-2.7); MONOS% (MANUAL) 2 % (2-9); MYELOCYTES# (MANUAL) 0.72 x10^3/uL (0-0); MYELOCYTES% (MANUAL) 3 % (0-0); SEG#(MANUAL) 17.93 x10^3/uL (1.8-6.8); SEGS% (MANUAL) 75 % (42-75)
[2019-07-22 10:17] LABS: <PLATELET ESTIMATE> INCREASED; POLYCHROMASIA 1+; STOMATOCYTES 1+
[2019-07-22 10:18] LABS: <PLT MORPHOLOGY> NORMAL PLT MORPH
[2019-07-22] MEDS: ALBUTEROL SULFATE 2.5 MG/3 ML NPPB PRN (10:20)
[2019-07-22 12:40] VITALS: BP 117/66
[2019-07-22] MEDS: CEFTRIAXONE PMX 1GM/50ML 50 ML IV SCH (13:24)
[2019-07-22] MEDS: AZITHROMYCIN 500 MG in SODIUM CHLORIDE 0.9% 250 ML IV SCH (14:22)
[2019-07-22] MEDS: ENOXAPARIN 100 MG/ML SQ SCH (16:06)
[2019-07-22] MEDS: CHOLECALCIFEROL 400 UNITS TABLET PO SCH (16:07)
[2019-07-22] MEDS ORDERED: WARFARIN 7.5 MG TABLET PO-COUM ONE (18:00)
[2019-07-22 18:54] VITALS: BP 124/71
[2019-07-22] MEDS ORDERED: NALOXONE 0.4 MG/ML, 1ML ONE (21:48)
[2019-07-22] MEDS ORDERED: NALOXONE 0.4 MG/ML, 1ML IVPush ONE (22:00)
[2019-07-22] MEDS: ATORVASTATIN 10 MG TABLET PO SCH (23:09)
[2019-07-23 01:02] VITALS: BP 137/81
[2019-07-23] MEDS: CEFTRIAXONE PMX 1GM/50ML 50 ML IV SCH (02:00)
[2019-07-23] MEDS: ENOXAPARIN 100 MG/ML SQ SCH ×2 (04:11→16:00)
[2019-07-23 05:27] LABS: INTERNATIONAL NORMALIZED RATIO 1.62 (0.93-1.1); PROTHROMBIN TIME 16.7 Seconds (9.6-11.5)
[2019-07-23 07:27] VITALS: BP 141/86
[2019-07-23] MEDS: MULTIVITS,STRESS FORMULA 1 TABLET PO SCH (08:50)
[2019-07-23] MEDS: methylPREDNISolone SOD SUCC 125 MG/2 ML IV SCH ×2 (08:50→12:05)
[2019-07-23] MEDS: SERTRALINE 100MG TABLET PO SCH (08:50)
[2019-07-23] MEDS: ASCORBIC ACID 500 MG TABLET PO SCH ×2 (08:51→17:55)
[2019-07-23] MEDS: DILTIAZEM 240 MG CAP.ER.24H PO SCH (08:51)
[2019-07-23] MEDS: ALBUTEROL SULFATE 2.5 MG/3 ML NPPB PRN (09:25)
[2019-07-23] MEDS: NS + 20MEQ KCL 1,000 ML IV SCH ×2 (11:53→22:00)
[2019-07-23] MEDS: AZITHROMYCIN 500 MG in SODIUM CHLORIDE 0.9% 250 ML IV SCH (12:14)
[2019-07-23 16:00] VITALS: BP 142/82
[2019-07-23] MEDS: CHOLECALCIFEROL 400 UNITS TABLET PO SCH (17:55)
[2019-07-23] MEDS ORDERED: WARFARIN 5 MG TABLET PO-COUM ONE (18:00)
[2019-07-23 18:52] VITALS: BP 138/82
[2019-07-23] MEDS: ATORVASTATIN 10 MG TABLET PO SCH (20:21)
[2019-07-24 00:21] VITALS: BP 130/80
[2019-07-24] MEDS: CEFTRIAXONE PMX 1GM/50ML 50 ML IV SCH (01:26)
[2019-07-24] MEDS: ENOXAPARIN 100 MG/ML SQ SCH ×3 (04:19→19:23)
[2019-07-24 06:21] LABS: MEAN CORPUSCULAR HGB CONC 31.6 g/dL (32.4-35.8); MEAN CORPUSCULAR VOLUME 91.7 fL (80-100); MEAN PLATELET VOLUME 7.3 fL (7.4-10.4); PLATELET COUNT 648 x10^3/uL (130-400); RED BLOOD COUNT 2.64 x10^6/uL (3.82-5.3); RED CELL DISTRIBUTION WIDTH 15.3 % (9.6-15.2)
[2019-07-24 06:27] LABS: INTERNATIONAL NORMALIZED RATIO 3.02 (0.93-1.1); PROTHROMBIN TIME 30.4 Seconds (9.6-11.5)
[2019-07-24 06:34] LABS: CALCIUM 9.2 mg/dL (8.5-10.1); CHLORIDE 106 mmol/L (98-107); CREATININE 0.63 mg/dL (0.55-1.02)
[2019-07-24 06:36] VITALS: BP 149/84
[2019-07-24 06:38] LABS: MD YES
[2019-07-24 06:40] LABS: ANISOCYTOSIS 1+; BAND#(MANUAL) 1.09 x10^3/uL; BANDS%(MANUAL) 6 % (0-7); LYMPH#(MANUAL) 2.35 x10^3/uL (1-3.4); LYMPHS% (MANUAL) 13 % (22-44); METAMYELOCYTES# (MANUAL) 1.45 x10^3/uL (0-0); METAMYELOCYTES% (MANUAL) 8 % (0-1); MONOS#(MANUAL) 1.09 x10^3/uL (0.3-2.7); MONOS% (MANUAL) 6 % (2-9); MYELOCYTES# (MANUAL) 0.72 x10^3/uL (0-0); MYELOCYTES% (MANUAL) 4 % (0-0); SEGS% (MANUAL) 63 % (42-75)
[2019-07-24 06:41] LABS: BASOPHILLIC STIPPLING 1+; POLYCHROMASIA 1+
[2019-07-24 06:42] LABS: <PLATELET ESTIMATE> INCREASED; <PLT MORPHOLOGY> NORMAL PLT MORPH
[2019-07-24 06:45] LABS: ANION GAP 1 mmol/L (5-15)
[2019-07-24] MEDS ORDERED: HOLD COUMADIN MC PRN (08:30)
[2019-07-24] MEDS ORDERED: methylPREDNISolone SOD SUCC 40 MG/ML IV SCH (09:00)
[2019-07-24] MEDS: ASCORBIC ACID 500 MG TABLET PO SCH ×2 (09:25→17:05)
[2019-07-24] MEDS: DILTIAZEM 240 MG CAP.ER.24H PO SCH (09:25)
[2019-07-24] MEDS: MULTIVITS,STRESS FORMULA 1 TABLET PO SCH (09:25)
[2019-07-24] MEDS: SERTRALINE 100MG TABLET PO SCH (09:25)
[2019-07-24] MEDS: NS + 20MEQ KCL 1,000 ML IV SCH (10:06)
[2019-07-24] MEDS: AZITHROMYCIN 500 MG in SODIUM CHLORIDE 0.9% 250 ML IV SCH (12:10)
[2019-07-24] MEDS ORDERED: methylPREDNISolone SOD SUCC 125 MG/2 ML IV SCH ×2 (12:30→16:00)
[2019-07-24] MEDS ORDERED: VANCOMYCIN PMX 1GM/200ML 200 ML IV ONE (15:30)
[2019-07-24] MEDS ORDERED: PHARMACOKINETIC MONITORING MC PRN (15:30)
[2019-07-24] MEDS ORDERED: VANCOMYCIN PER PHARMACY MC PRN (15:30)
[2019-07-24] MEDS: methylPREDNISolone SOD SUCC 125 MG/2 ML IV SCH ×2 (16:30→20:25)
[2019-07-24] MEDS: PIPERACILLIN/TAZO/PMX 3.375GM 50 ML IV SCH ×2 (16:31→20:26)
[2019-07-24] MEDS: VANCOMYCIN 1,600 MG in SODIUM CHLORIDE 0.9% 250 ML IV SCH (17:05)
[2019-07-24] MEDS: CHOLECALCIFEROL 400 UNITS TABLET PO SCH (17:05)
[2019-07-24] MEDS: ATORVASTATIN 10 MG TABLET PO SCH (20:25)
[2019-07-25] MEDS: PIPERACILLIN/TAZO/PMX 3.375GM 50 ML IV SCH ×4 (03:59→21:33)
[2019-07-25 04:45] LABS: INTERNATIONAL NORMALIZED RATIO 2.73 (0.93-1.1); PROTHROMBIN TIME 27.6 Seconds (9.6-11.5)
[2019-07-25 04:48] LABS: ALANINE AMINOTRANSFERASE 23 U/L (12-78); ALBUMIN 2.5 g/dL (3.4-5.0); ANION GAP 3 mmol/L (5-15); CALCIUM 8.6 mg/dL (8.5-10.1); CHLORIDE 101 mmol/L (98-107)
[2019-07-25 04:51] LABS: ALKALINE PHOSPHATASE 57 U/L (45-117); BILIRUBIN,TOTAL 0.4 mg/dL (0.2-1.0); CREATININE 0.61 mg/dL (0.55-1.02); TOTAL PROTEIN 5.5 g/dL (6.4-8.2)
[2019-07-25 04:55] LABS: MEAN CORPUSCULAR HEMOGLOBIN 28.5 pg (27.0-34.8); MEAN CORPUSCULAR HGB CONC 31.2 g/dL (32.4-35.8); MEAN CORPUSCULAR VOLUME 91.4 fL (80-100); MEAN PLATELET VOLUME 7.1 fL (7.4-10.4); PLATELET COUNT 568 x10^3/uL (130-400); RED BLOOD COUNT 2.53 x10^6/uL (3.82-5.3); RED CELL DISTRIBUTION WIDTH 15.1 % (9.6-15.2)
[2019-07-25 05:25] LABS: MD YES
[2019-07-25 05:26] LABS: BAND#(MANUAL) 0.24 x10^3/uL; BANDS%(MANUAL) 2 % (0-7); LYMPH#(MANUAL) 1.44 x10^3/uL (1-3.4); LYMPHS% (MANUAL) 12 % (22-44); METAMYELOCYTES% (MANUAL) 5 % (0-1); MONOS#(MANUAL) 0.12 x10^3/uL (0.3-2.7); MONOS% (MANUAL) 1 % (2-9); MYELOCYTES# (MANUAL) 0.48 x10^3/uL (0-0); MYELOCYTES% (MANUAL) 4 % (0-0); SEG#(MANUAL) 9.12 x10^3/uL (1.8-6.8); SEGS% (MANUAL) 76 % (42-75)
[2019-07-25 05:27] LABS: BASOPHILLIC STIPPLING 1+
[2019-07-25 05:29] LABS: <PLATELET ESTIMATE> INCREASED; <PLT MORPHOLOGY> NORMAL PLT MORPH; ANISOCYTOSIS 1+; OVALOCYTES 1+; POLYCHROMASIA 1+
[2019-07-25] MEDS: ASCORBIC ACID 500 MG TABLET PO SCH ×2 (08:08→16:59)
[2019-07-25] MEDS: methylPREDNISolone SOD SUCC 125 MG/2 ML IV SCH ×3 (08:08→21:33)
[2019-07-25] MEDS: SERTRALINE 100MG TABLET PO SCH (08:09)
[2019-07-25] MEDS: DILTIAZEM 240 MG CAP.ER.24H PO SCH (08:09)
[2019-07-25] MEDS: MULTIVITS,STRESS FORMULA 1 TABLET PO SCH (10:14)
[2019-07-25] MEDS: LOSARTAN 25MG TABLET PO SCH ×2 (14:53→21:32)
[2019-07-25] MEDS: VANCOMYCIN 1,600 MG in SODIUM CHLORIDE 0.9% 250 ML IV SCH (16:58)
[2019-07-25] MEDS: CHOLECALCIFEROL 400 UNITS TABLET PO SCH (16:59)
[2019-07-25] MEDS ORDERED: WARFARIN 2.5 MG TABLET PO-COUM ONE (18:00)
[2019-07-25] MEDS ORDERED: LOSARTAN 25MG TABLET PO SCH (21:00)
[2019-07-25] MEDS: ATORVASTATIN 10 MG TABLET PO SCH (21:33)
[2019-07-26] MEDS: PIPERACILLIN/TAZO/PMX 3.375GM 50 ML IV SCH ×4 (03:30→20:30)
[2019-07-26 04:55] LABS: INTERNATIONAL NORMALIZED RATIO 3.15 (0.93-1.1); PROTHROMBIN TIME 31.6 Seconds (9.6-11.5)
[2019-07-26 05:01] LABS: MEAN CORPUSCULAR HEMOGLOBIN 28.7 pg (27.0-34.8); MEAN CORPUSCULAR HGB CONC 31.2 g/dL (32.4-35.8); PLATELET COUNT 636 x10^3/uL (130-400); RED CELL DISTRIBUTION WIDTH 14.4 % (9.6-15.2)
[2019-07-26 05:03] LABS: ANION GAP 1 mmol/L (5-15); CALCIUM 8.8 mg/dL (8.5-10.1); CHLORIDE 100 mmol/L (98-107); CREATININE 0.54 mg/dL (0.55-1.02)
[2019-07-26 05:53] LABS: MD YES
[2019-07-26 05:57] LABS: BAND#(MANUAL) 0.64 x10^3/uL; BANDS%(MANUAL) 4 % (0-7); LYMPH#(MANUAL) 1.43 x10^3/uL (1-3.4); LYMPHS% (MANUAL) 9 % (22-44); MONOS% (MANUAL) 5 % (2-9); MYELOCYTES% (MANUAL) 5 % (0-0); SEG#(MANUAL) 12.24 x10^3/uL (1.8-6.8); SEGS% (MANUAL) 77 % (42-75)
[2019-07-26 05:58] LABS: ANISOCYTOSIS 1+; BASOPHILLIC STIPPLING 1+; OVALOCYTES 1+; POLYCHROMASIA 1+
[2019-07-26 05:59] LABS: <PLATELET ESTIMATE> INCREASED; <PLT MORPHOLOGY> NORMAL PLT MORPH
[2019-07-26] MEDS: methylPREDNISolone SOD SUCC 125 MG/2 ML IV SCH ×3 (08:48→20:30)
[2019-07-26] MEDS: LOSARTAN 25MG TABLET PO SCH ×2 (10:31→20:30)
[2019-07-26] MEDS: DILTIAZEM 240 MG CAP.ER.24H PO SCH (10:32)
[2019-07-26] MEDS: ASCORBIC ACID 500 MG TABLET PO SCH ×2 (10:32→17:39)
[2019-07-26] MEDS: SERTRALINE 100MG TABLET PO SCH (10:32)
[2019-07-26] MEDS: MULTIVITS,STRESS FORMULA 1 TABLET PO SCH (10:33)
[2019-07-26 16:20] VITALS: BP 138/61
[2019-07-26] MEDS: CHOLECALCIFEROL 400 UNITS TABLET PO SCH (17:38)
[2019-07-26] MEDS ORDERED: WARFARIN 1 MG TABLET PO-COUM ONE (18:00)
[2019-07-26 20:00] VITALS: BP 144/59
[2019-07-26] MEDS: ATORVASTATIN 10 MG TABLET PO SCH (20:30)
[2019-07-27 00:47] VITALS: BP 168/72
[2019-07-27] MEDS: PIPERACILLIN/TAZO/PMX 3.375GM 50 ML IV SCH ×4 (03:30→20:00)
[2019-07-27 04:46] LABS: INTERNATIONAL NORMALIZED RATIO 2.03 (0.93-1.1); PROTHROMBIN TIME 20.7 Seconds (9.6-11.5)
[2019-07-27 04:55] LABS: MEAN CORPUSCULAR HEMOGLOBIN 29.2 pg (27.0-34.8); MEAN CORPUSCULAR HGB CONC 31.4 g/dL (32.4-35.8); MEAN CORPUSCULAR VOLUME 92.8 fL (80-100); MEAN PLATELET VOLUME 7.1 fL (7.4-10.4); PLATELET COUNT 644 x10^3/uL (130-400); RED BLOOD COUNT 2.96 x10^6/uL (3.82-5.3); RED CELL DISTRIBUTION WIDTH 15.7 % (9.6-15.2)
[2019-07-27 05:41] LABS: CHLORIDE 99 mmol/L (98-107); MD YES
[2019-07-27 05:42] LABS: ANION GAP 1 mmol/L (5-15)
[2019-07-27 05:43] LABS: ANISOCYTOSIS 1+; BAND#(MANUAL) 0.17 x10^3/uL; BANDS%(MANUAL) 1 % (0-7); LYMPH#(MANUAL) 1.49 x10^3/uL (1-3.4); LYMPHS% (MANUAL) 9 % (22-44); METAMYELOCYTES# (MANUAL) 0.33 x10^3/uL (0-0); METAMYELOCYTES% (MANUAL) 2 % (0-1); MONOS% (MANUAL) 6 % (2-9); MYELOCYTES# (MANUAL) 0.66 x10^3/uL (0-0); MYELOCYTES% (MANUAL) 4 % (0-0); OVALOCYTES 1+; POLYCHROMASIA 1+; SEG#(MANUAL) 12.95 x10^3/uL (1.8-6.8); SEGS% (MANUAL) 78 % (42-75)
[2019-07-27 05:44] LABS: <PLATELET ESTIMATE> INCREASED; <PLT MORPHOLOGY> NORMAL PLT MORPH; BASOPHILLIC STIPPLING 1+
[2019-07-27 05:47] LABS: CALCIUM 8.9 mg/dL (8.5-10.1); CREATININE 0.66 mg/dL (0.55-1.02)
[2019-07-27 08:26] VITALS: BP 156/63
[2019-07-27] MEDS: methylPREDNISolone SOD SUCC 125 MG/2 ML IV SCH ×3 (08:31→19:59)
[2019-07-27] MEDS: DILTIAZEM 240 MG CAP.ER.24H PO SCH (08:31)
[2019-07-27] MEDS: SERTRALINE 100MG TABLET PO SCH (08:31)
[2019-07-27] MEDS: ASCORBIC ACID 500 MG TABLET PO SCH ×2 (08:31→16:37)
[2019-07-27] MEDS: LOSARTAN 25MG TABLET PO SCH ×2 (08:31→19:59)
[2019-07-27 14:30] VITALS: BP 162/70
[2019-07-27] MEDS ORDERED: WARFARIN 2 MG TABLET PO-COUM SCH (18:00)
[2019-07-27] MEDS: MULTIVITS,STRESS FORMULA 1 TABLET PO SCH (18:48)
[2019-07-27] MEDS: CHOLECALCIFEROL 400 UNITS TABLET PO SCH (18:48)
[2019-07-27 19:19] VITALS: BP 162/88
[2019-07-27] MEDS: ATORVASTATIN 10 MG TABLET PO SCH (19:59)
[2019-07-28 00:37] VITALS: BP 161/86
[2019-07-28 02:06] VITALS: BP 145/84
[2019-07-28] MEDS: PIPERACILLIN/TAZO/PMX 3.375GM 50 ML IV SCH ×4 (04:27→22:35)
[2019-07-28 06:24] LABS: MEAN CORPUSCULAR HEMOGLOBIN 29.7 pg (27.0-34.8); MEAN CORPUSCULAR HGB CONC 31.7 g/dL (32.4-35.8); MEAN CORPUSCULAR VOLUME 93.5 fL (80-100); MEAN PLATELET VOLUME 6.7 fL (7.4-10.4); PLATELET COUNT 631 x10^3/uL (130-400); RED BLOOD COUNT 2.97 x10^6/uL (3.82-5.3); RED CELL DISTRIBUTION WIDTH 16.4 % (9.6-15.2)
[2019-07-28 06:33] LABS: CALCIUM 8.9 mg/dL (8.5-10.1); CHLORIDE 97 mmol/L (98-107); CREATININE 0.58 mg/dL (0.55-1.02)
[2019-07-28 06:41] LABS: ANION GAP 2 mmol/L (5-15)
[2019-07-28 06:52] LABS: MD YES
[2019-07-28 06:54] LABS: <PLATELET ESTIMATE> INCREASED; <PLT MORPHOLOGY> NORMAL PLT MORPH; ANISOCYTOSIS 1+; BAND#(MANUAL) 1.07 x10^3/uL; BANDS%(MANUAL) 6 % (0-7); BASOPHILLIC STIPPLING 1+; HYPOCHROMIA 1+; LYMPH#(MANUAL) 1.25 x10^3/uL (1-3.4); LYMPHS% (MANUAL) 7 % (22-44); METAMYELOCYTES# (MANUAL) 0.71 x10^3/uL (0-0); METAMYELOCYTES% (MANUAL) 4 % (0-1); MONOS#(MANUAL) 0.71 x10^3/uL (0.3-2.7); MONOS% (MANUAL) 4 % (2-9); MYELOCYTES# (MANUAL) 0.18 x10^3/uL (0-0); MYELOCYTES% (MANUAL) 1 % (0-0); OVALOCYTES 1+; POLYCHROMASIA 1+; SEG#(MANUAL) 13.88 x10^3/uL (1.8-6.8); SEGS% (MANUAL) 78 % (42-75)
[2019-07-28 06:55] LABS: STOMATOCYTES 1+
[2019-07-28 08:01] LABS: INTERNATIONAL NORMALIZED RATIO 1.26 (0.93-1.1); PROTHROMBIN TIME 13.1 Seconds (9.6-11.5)
[2019-07-28 08:52] VITALS: BP 156/79
[2019-07-28] MEDS: LOSARTAN 25MG TABLET PO SCH ×2 (08:57→20:08)
[2019-07-28] MEDS: MULTIVITS,STRESS FORMULA 1 TABLET PO SCH (08:57)
[2019-07-28] MEDS: SERTRALINE 100MG TABLET PO SCH (08:57)
[2019-07-28] MEDS: DILTIAZEM 240 MG CAP.ER.24H PO SCH (08:57)
[2019-07-28] MEDS: ASCORBIC ACID 500 MG TABLET PO SCH ×2 (08:57→17:38)
[2019-07-28] MEDS: methylPREDNISolone SOD SUCC 125 MG/2 ML IV SCH (08:57)
[2019-07-28] MEDS: SODIUM CHLORIDE 0.9% 1,000 ML IV SCH (14:34)
[2019-07-28] MEDS: CHOLECALCIFEROL 400 UNITS TABLET PO SCH (17:38)
[2019-07-28] MEDS: CARVEDILOL 12.5 MG TABLET PO SCH (17:43)
[2019-07-28] MEDS ORDERED: WARFARIN 5 MG TABLET PO-COUM SCH (18:00)
[2019-07-28 18:55] VITALS: BP 136/66
[2019-07-28 20:06] VITALS: BP 141/70
[2019-07-28] MEDS: ATORVASTATIN 10 MG TABLET PO SCH (20:08)
[2019-07-28] MEDS: MORPHINE SULFATE 4 MG/ML, 1ML IVPush PRN (21:38)
[2019-07-29] VITALS (9 sets, daily range): BP systolic 114–155; BP diastolic 56–75
[2019-07-29 04:42] LABS: INTERNATIONAL NORMALIZED RATIO 1.32 (0.93-1.1); PROTHROMBIN TIME 13.7 Seconds (9.6-11.5)
[2019-07-29] MEDS: PIPERACILLIN/TAZO/PMX 3.375GM 50 ML IV SCH ×4 (04:53→22:29)
[2019-07-29] MEDS: CARVEDILOL 12.5 MG TABLET PO SCH ×2 (06:02→17:23)
[2019-07-29] MEDS: SODIUM CHLORIDE 0.9% 1,000 ML IV SCH ×2 (08:51→23:24)
[2019-07-29] MEDS: MULTIVITS,STRESS FORMULA 1 TABLET PO SCH (08:52)
[2019-07-29] MEDS: ASCORBIC ACID 500 MG TABLET PO SCH ×2 (08:52→16:21)
[2019-07-29] MEDS: SERTRALINE 100MG TABLET PO SCH (08:52)
[2019-07-29] MEDS: LOSARTAN 25MG TABLET PO SCH ×2 (08:52→20:24)
[2019-07-29] MEDS: CHOLECALCIFEROL 400 UNITS TABLET PO SCH (16:21)
[2019-07-29] MEDS ORDERED: WARFARIN 7.5 MG TABLET PO-COUM SCH (18:00)
[2019-07-29] MEDS: ATORVASTATIN 10 MG TABLET PO SCH (20:27)
[2019-07-30 00:43] VITALS: BP 148/79
[2019-07-30] MEDS: MORPHINE SULFATE 4 MG/ML, 1ML IVPush PRN ×3 (04:22→12:50)
[2019-07-30] MEDS: PIPERACILLIN/TAZO/PMX 3.375GM 50 ML IV SCH ×2 (04:22→10:16)
[2019-07-30 05:32] VITALS: BP 139/71
[2019-07-30] MEDS: CARVEDILOL 12.5 MG TABLET PO SCH (05:35)
[2019-07-30 06:11] LABS: INTERNATIONAL NORMALIZED RATIO 1.57 (0.93-1.1); PROTHROMBIN TIME 16.2 Seconds (9.6-11.5)
[2019-07-30 06:12] LABS: MEAN CORPUSCULAR HEMOGLOBIN 29.2 pg (27.0-34.8); MEAN CORPUSCULAR HGB CONC 30.8 g/dL (32.4-35.8); MEAN CORPUSCULAR VOLUME 94.7 fL (80-100); MEAN PLATELET VOLUME 6.6 fL (7.4-10.4); PLATELET COUNT 406 x10^3/uL (130-400); RED BLOOD COUNT 3.07 x10^6/uL (3.82-5.3); RED CELL DISTRIBUTION WIDTH 16.4 % (9.6-15.2)
[2019-07-30 06:14] LABS: CHLORIDE 93 mmol/L (98-107)
[2019-07-30 06:23] LABS: % IRON SATURATION 12 % (20-55); CALCIUM 8.9 mg/dL (8.5-10.1); CREATININE 0.51 mg/dL (0.55-1.02); IRON LEVEL 32 mcg/dL (50-170); TOTAL IRON BINDING CAPACITY 268 mcg/dL (250-450)
[2019-07-30 06:40] LABS: BASOPHILS # (AUTO) 0.01 x10^3/uL (0-0.1); BASOPHILS % (AUTO) 0 % (0-1); EOSINOPHILS # (AUTO) 0.39 x10^3/uL (0-0.4); EOSINOPHILS % (AUTO) 3 % (1-7); LYMPHOCYTES # (AUTO) 1.18 x10^3/uL (1-3.4); LYMPHOCYTES % (AUTO) 9 % (22-44); MD NO; MONOCYTES # (AUTO) 0.51 x10^3/uL (0.2-0.8); MONOCYTES % (AUTO) 4 % (2-9); NEUTROPHILS # (AUTO) 10.52 x10^3/uL (1.8-6.8); NEUTROPHILS % (AUTO) 83 % (42-75)
[2019-07-30 07:06] LABS: ANION GAP 1 mmol/L (5-15)
[2019-07-30 07:56] VITALS: BP 124/70
[2019-07-30] MEDS ORDERED: FERROUS SULFATE 325 MG TABLET PO SCH (08:00)
[2019-07-30] MEDS: ASCORBIC ACID 500 MG TABLET PO SCH (08:00)
[2019-07-30] MEDS: SERTRALINE 100MG TABLET PO SCH (09:00)
[2019-07-30] MEDS: MULTIVITS,STRESS FORMULA 1 TABLET PO SCH (09:00)
[2019-07-30] MEDS: LOSARTAN 25MG TABLET PO SCH (09:00)
[2019-07-30 09:32] LABS: O2 FLOW 3 L/min
[2019-07-30] MEDS ORDERED: FERR-51 PO (11:13)
[2019-07-30] MEDS ORDERED: CARV12.52 PO (11:13)
[2019-07-30] MEDS ORDERED: HYDR-3341 PO (11:13)
[2019-07-30] MEDS ORDERED: SODIUM CHLORIDE 0.9% 1,000 ML IV SCH (14:30)
[2019-07-30] MEDS ORDERED: CARVEDILOL 12.5 MG TABLET PO SCH (18:00)
[2019-07-30] MEDS ORDERED: WARFARIN 3 MG TABLET PO-COUM SCH (18:00)
== END 2019-07-30 13:13 | disposition hospice, home (50) | DRG 871 ==
LOC: ED 15:56 → EDIP 16:18 → 4WST 20:16 → ICU 07-24 12:56 → 4WST 07-27 17:16
PROVIDERS: ADMIT Internal Medicine; ATTEND Internal Medicine
PROC: 30233N1 Transfusion of Nonautologous Red Blood Cells into Peripheral Vein, Percutaneous Approach (ICD-10-PCS; principal; 2019-07-20)
PROC: 5A09357 Assistance with Respiratory Ventilation, Less than 24 Consecutive Hours, Continuous Positive Airway Pressure (ICD-10-PCS; 2019-07-24)
DX: A41.9 Sepsis, unspecified organism (principal); J18.9 Pneumonia, unspecified organism; J96.21 Acute and chronic respiratory failure with hypoxia; G93.41 Metabolic encephalopathy; J96.22 Acute and chronic respiratory failure with hypercapnia; J44.1 Chronic obstructive pulmonary disease with (acute) exacerbation; D62 Acute posthemorrhagic anemia; D68.69 Other thrombophilia; F13.20 Sedative, hypnotic or anxiolytic dependence, uncomplicated; J44.0 Chronic obstructive pulmonary disease with (acute) lower respiratory infection; D63.8 Anemia in other chronic diseases classified elsewhere; E66.01 Morbid (severe) obesity due to excess calories; Z71.3 Dietary counseling and surveillance; Z68.38 Body mass index [BMI] 38.0-38.9, adult; F17.210 Nicotine dependence, cigarettes, uncomplicated; H21.02 Hyphema, left eye; I10 Essential (primary) hypertension; W18.39XA Other fall on same level, initial encounter; Y93.89 Activity, other specified; Y92.89 Other specified places as the place of occurrence of the external cause; Y99.8 Other external cause status; Z51.5 Encounter for palliative care; Z66 Do not resuscitate; Z79.01 Long term (current) use of anticoagulants; Z86.711 Personal history of pulmonary embolism; Z90.710 Acquired absence of both cervix and uterus; Z96.659 Presence of unspecified artificial knee joint; Z99.81 Dependence on supplemental oxygen; R29.6 Repeated falls
CPT/HCPCS: 36415; 36430; 36600; 70450; 71045; 71250; 80048; 80053; 80069; 81001; 82800; 82803; 83540; 83550; 83605; 83735; 84100; 84145; 85025; 85610; 85730; 86850; 86900; 86923; 87040; 87070; 87081; 87086; 87205; 93005; 94640; 94660; 96365; 96375; G0378; J0456; J0696; J1650; J2310; J2405; J2543; J3370; J3480; J7613; J7620; J0360; J2270; J2920; J2930; J7030; J7040; J7050; P9016